=== PATIENT | female | born 1950 | race Caucasian/White ===

== ENCOUNTER 2023-08-15 09:55 | Emergency (ER) | payer MEDICARE, OTHER ==
--- NOTE | 2023-08-15 10:41 | XRAY Report ---
PROCEDURE: Forearm RT INDICATIONS: Trauma TECHNIQUE: 2 views of the forearm were acquired. COMPARISON: None. FINDINGS: Bones: No fractures or dislocations. No suspicious bony lesions. Soft tissues: No suspicious soft tissue calcifications or masses. IMPRESSION: No visualized acute fracture or dislocation. However, occult injury cannot be excluded. Recommend terese rt interval imaging follow-up in 7-10 days as clinically indicated for additional evaluation. Reviewed by: Kristin Ortega MD on 08/15/2023 10:39 AM PDT Approved by: Kristin Ortega MD on 08/15/2023 10:39 AM PDT Station ID: [id number]
--- NOTE | 2023-08-15 11:09 | ED Physician Documentation ---
PD HPI WOUND RECHECK - Stated complaint Stated Complaint: RT ARM LAC, DOG BITE - Chief complaint Chief Complaint: Wound - Histroy obtained from History obtained from: Patient - Additional information Additional information: 72-year-old healthy woman who is visiting from [facility]. She is up-to-date on tetanus having had it about a year ago. She is dog sitting for her brother and that dog got in a fight with another dog and she broke it up. She received 2 very large lacerations on the right forearm. She is otherwise uninjured. PD PAST MEDICAL HISTORY - Past Medical History Past Medical History: No - Past Surgical History Past Surgical History: No - Present Medications Home Medications: Ambulatory Orders Medication Instructions Recorded Confirmed Amox/Clav 875/125 [Augmentin] 1 each PO Q12H #10 tablet 08/15/23 Bacitracin Zinc Oint 1 applic TOP BID #1 each 08/15/23 Oxycodone HCl/Acetaminophen 1 - 2 each PO Q6H PRN #7 tablet 08/15/23 [Percocet 5-325 mg Tablet] - Allergies Allergies/Adverse Reactions: Allergies Allergy/AdvReac Type Severity Reaction Status Date / Time No Known Drug Allergies Allergy Verified 08/15/23 10:16 - Social History Does the pt smoke?: No Smoking Status: Never smoker Does the pt drink ETOH?: No Does the pt have substance abuse?: No - Immunizations Immunizations are current?: Yes - POLST Patient has POLST: No PD ED PE NORMAL - Vitals Vital signs reviewed: Yes - General General: Alert and oriented X 3, No acute distress - Extremities Extremities: Other (On the dorsal right forearm there are 2 extensive lacerations, one measures approximately 12 cm, the other about 10 cm. They are L-shaped and down into the subcutaneous tissue. She has normal extensor tendon strength in all the fingers and normal sensation and cap refill throughout the hand.) - Neuro Neuro: Alert and oriented X 3 - Psych Psych: Normal mood, Normal affect Results - Vitals Vitals: Vital Signs - 24 hr 08/15/23 08/15/23 10:09 12:17 Temperature 36.4 C L Heart Rate 118 H 86 Respiratory 20 18 Rate Blood Pressure 161/95 H 145/70 H O2 Saturation 96 98 Oxygen O2 Source Room air - Rads (name of study) 2 view x-ray of the right forearm was negative for fracture. Relevant Findings:: Final report received, EMP independent interpretation of test Procedures - Laceration (location) Right forearm Length in cm: 22 Wound type: Stellate, Irregular, Into subcut fat Neurovascular status: Sensory intact, Motor intact Anesthesia: Lidocaine 1% with epi, Other (She was premedicated with some Dilaudid and Ativan for pain and anxiety. Not sedation.) Wound preparation: Hibiclens, Irrigated copiously NS, Debrided moderately (Some subcutaneous fat was debrided and the area was scrubbed with Hibiclens.), Wound explored, To the base Skin layer closure: Nylon, Interrupted, Size #-0 - enter number (3-0) Other: Tetanus UTD PD Medical Decision Making - ED course ED course: 72-year-old woman with extensive Dog bite lacerations to the right forearm. Also some other scattered puncture wounds. She received IV Unasyn here and some Dilaudid and Ativan for pain and anxiousness before the repair. It was all loosely closed and she was counseled on wound care, follow-up, and return precautions. Departure - Departure Disposition: Home, Self Care Clinical Impression: Animal bite with open wound Condition: Good Record reviewed to determine appropriate education?: Yes Instructions: ED Bite Animal General, ED Wound Care Prescriptions: Amox/Clav 875/125 [Augmentin] 1 each PO Q12H #10 tablet Bacitracin Zinc Oint 1 applic TOP BID #1 each Oxycodone HCl/Acetaminophen [Percocet 5-325 mg Tablet] 1 - 2 each PO Q6H PRN #7 tablet PRN Reason: pain Comments: Leave the current dressing on until Saturday. Would like to see you Saturday morning for a wound check. Come back for any signs of infection which would include: Redness, swelling, drainage, increased pain, or fevers. You can wash it soap and water. Keep it covered and moist with bacitracin ointment which is available over the counter; avoid neosporin. Follow-up with your physician in about 14 Days for suture removal. Or return here. [facility] [address] [address] [facility] [place]. I am prescribing a short course of narcotic pain medication for you. These are potentially dangerous and addictive medications that should be used carefully. These medications may constipate you. Take an swjj-fwz-xxuwdyz stool softener (docusate) twice daily with plenty of water while taking these medications. If you go 24 hours without a bowel movement, take yrqf-kxn-lcyvufb miralax, per package instructions. Do not drink or drive while taking these medications. If you received narcotic or sedating medications while in the emergency department, do not drive for 24 hours. Store this medication in a safe, secure place and out of reach of children. It is a violation of federal law to give or sell this medication to another person or to use in a manner other than prescribed. The ED will not refill narcotic prescriptions, including prescriptions lost or stolen. To dispose of unwanted medications: 1. [facility] provides a drop box for medication in pill form only (no liquids) 8:00 am to 4:30 p.m. Saturday-Saturday in the lobby of the [facility], [address] [place] [address]. Empty pills into ziplock bag before disposal. Call [phone] for information. 2.[employer] is a free service available to all [facility] residents. Go to https://9facts.org/locations/[place]/ Note that many narcotic pain relievers also contain Tylenol/acetaminophen. Please ensure that your total dose of acetaminophen from all sources does not exceed 3 g (3000 mg) per day. Forms: PCP List Discharge Date/Time: 08/15/23 12:27
[2023-08-15] MEDS: HYDROmorphone 2 MG/ML VIAL IVP STA (11:27)
[2023-08-15] MEDS: LORazepam 2 MG/ML VIAL IVP STA (11:28)
[2023-08-15] MEDS: LIDOCAINE 1%-EPI 1:100000 20 ML MDV SUBQ STA (11:30)
[2023-08-15] MEDS: AMPICILLIN/SULBACTAM 3 GM in SODIUM CHLORIDE 0.9% MINIBAG 100 ML IV STA (11:30)
[2023-08-15 12:28] VITALS: BP 145/70; O2SAT 98
== END 2023-08-15 12:27 | disposition home or self-care (01) ==
LOC: ED 09:55
DX: S51.851A Open bite of right forearm, initial encounter (principal); W54.0XXA Bitten by dog, initial encounter
CPT/HCPCS: 12006; 73090; 96365; 96375; 99284; J1170; J2060

== ENCOUNTER 2023-08-17 07:11 | Emergency (ER) | payer MEDICARE, OTHER ==
[2023-08-17 07:21] VITALS: BP 149/72; O2SAT 99
--- NOTE | 2023-08-17 07:36 | ED Physician Documentation ---
PD HPI WOUND RECHECK - Stated complaint Stated Complaint: R ARM WOUND - Chief complaint Chief Complaint: Trauma Ext - Histroy obtained from History obtained from: Patient, Family () - History of Present Illness Location: Right Upper Extremity Timing - onset: How many days ago (2) Associated symptoms: Pain (only required tylenol for pain control). No: Fever, Redness, Swelling, Drainage Similar symptoms before: Diagnosis (laceration) Recently seen: Emergency Dept - Additional information Additional information: Mariangel Hernandez is a 72-year-old female who presented to the emergency department 2 days ago when she was bit by her brother's dog that she was watching. She had deep lacerations to her right forearm this was repaired she was given Unasyn and placed on Augmentin. The patient has no complaints she has been using her hand normally she has not taken the dressing down she has not had a fever. She has been able to control her pain with oral Tylenol. She indicates she is taking the antibiotic she was prescribed. Review of Systems Constitutional: denies: Fever Skin: reports: Laceration (s), Bite / sting Musculoskeletal: reports: Extremity pain Neurologic: denies: Generalized weakness, Focal weakness, Numbness PD PAST MEDICAL HISTORY - Past Surgical History Past Surgical History: No - Present Medications Home Medications: Ambulatory Orders Medication Instructions Recorded Confirmed Amox/Clav 875/125 [Augmentin] 1 each PO Q12H #10 tablet 08/15/23 08/17/23 Bacitracin Zinc Oint 1 applic TOP BID #1 each 08/15/23 08/17/23 Oxycodone HCl/Acetaminophen 1 - 2 each PO Q6H PRN #7 tablet 08/15/23 08/17/23 [Percocet 5-325 mg Tablet] - Allergies Allergies/Adverse Reactions: Allergies Allergy/AdvReac Type Severity Reaction Status Date / Time No Known Drug Allergies Allergy Verified 08/17/23 07:21 - Social History Does the pt smoke?: No Smoking Status: Never smoker Does the pt drink ETOH?: No Does the pt have substance abuse?: No - Immunizations Immunizations are current?: Yes - POLST Patient has POLST: No PD ED PE NORMAL - Vitals Vital signs reviewed: Yes (Hypertensive mild) - General General: Alert and oriented X 3, No acute distress, Well developed/nourished - HEENT HEENT: Atraumatic, PERRL, EOMI - Respiratory Respiratory: No respiratory distress - Derm Derm: Normal color, Warm and dry, No rash - Extremities Extremities: No deformity, No edema, Other (The right forearm has bruising to the volar surface and suturing to the dorsal surface. The wound appears to be healing well without signs of inflammation or drainage. There is minimal swelling present. 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, No motor deficit, No sensory deficit, Normal speech Eye Opening: Spontaneous Motor: Obeys Commands Verbal: Oriented GCS Score: 15 - Psych Psych: Normal mood, Normal affect Results - Vitals Vitals: Vital Signs - 24 hr 08/17/23 07:14 Temperature 36.4 C L Heart Rate 77 Respiratory 18 Rate Blood Pressure 149/72 H O2 Saturation 99 Oxygen O2 Source Room air PD Medical Decision Making - ED course Complexity details: considered differential, d/w patient, d/w family ED course: 72-year-old female patient coming into the emerged part for wound check 2 days after a dog bite with large laceration to the right forearm. She appears to be healing well from this without signs of infection. She is instructed to continue to take her antibiotic to change her dressing daily and to return at the 2-week gabrielle for suture removal. Departure - Departure Disposition: 01 Home, Self Care Clinical Impression: Animal bite with open wound Condition: Stable Instructions: ED Wound Care Comments: Mariangel, today looks like your wound is healing well without signs of infection. Continue to take your antibiotic and change the dressing daily. You may notice some itching to the wound tomorrow, this would be expected. A thin rim of redness around the wound may also occur at the #3, also expected. Wound redness extending beyond 1 to 3 mm is not expected and a return is indicated if that happens. Follow-up at the 2-week gabrielle for suture removal.
== END 2023-08-17 07:53 | disposition home or self-care (01) ==
LOC: ED 07:11
DX: S51.851A Open bite of right forearm, initial encounter (principal); W54.0XXA Bitten by dog, initial encounter
CPT/HCPCS: 99282; 99283